=== PATIENT | female | born 1970 | race African-American/Black ===

== ENCOUNTER 2018-06-06 10:22 | Emergency (ER) | payer BC, SELFPAY ==
[2018-06-06] MEDS ORDERED: Azithromycin 250 MG TAB ONE (11:59)
== END 2018-06-06 12:17 | disposition home or self-care (01) ==
LOC: ERS 10:22
DX: R05 Cough (principal); Z79.899 Other long term (current) drug therapy
CPT/HCPCS: 87804; 94640; J7620